=== PATIENT | female | born 1965 | race Caucasian/White ===

== ENCOUNTER 2016-05-31 19:01 | Inpatient (IN) | payer MEDICARE, MEDICAID ==
[~2016-05-31] VITALS: Ht 165.1 cm; Wt 102.7 kg
--- NOTE | ~2016-05-31 | EKG ---
[place], [place] ELECTROCARDIOGRAM REPORT NAME: SUNDAR TMA UNIT #: [id number] ROOM: 424 DOCTOR: FAN STACK MD BIRTHDATE: [birth year] DOS: 05/31/2016 TIME: 19:46.P Sinus rhythm with right axis deviation, biatrial enlargement, possible right ventricular hypertrophy with secondary ST-T wave changes, abnormal electrocardiogram. FAN STACK MD CM:EKGRPT:ELECTROCARDIOGRAM REPORT 1107 [id number] FAN STACK MD
--- NOTE | ~2016-05-31 | CON ---
[place], [place] RE[facility] OF CONS[facility]ATION [id number] UNIT #: [id number] ROOM: 424 DOCTOR: MIYA LAGUNAS MD BIRTHDATE: [birth year] DOS: CHIEF COMPLAINT: "I need my meds adjusted." HISTORY OF PRESENT ILLNESS: This is a 50-year-old white female who is a patient of Dr. Jay. She is admitted to the medical unit due to complaints of shortness of breath, productive cough and respiratory failure. She does have a history of chronic respiratory failure and uses oxygen at home intermittently. She was admitted for this medical issue, but in the course of the examination, it was found that she seemed to be on a polypharmacy mix of antipsychotics, so I was consulted to see if her medications could be simplified. MENTAL STATUS: She is alert and oriented. She does have a hard time with completing her thoughts and has a tendency to be somewhat flighty and disjointed in her thinking. She did report that of her medicine, she feels the duloxetine and the Rexulti are the most beneficial and stated that the nurse practitioner in Dr. Jay's office was hoping to get rid of the Geodon ultimately. She denies auditory or visual hallucinations currently and denies any delusions. Her sleep is disturbed, but it is unclear how much of this is because of her ongoing medical issues. DIAGNOSIS: Schizoaffective disorder. PLAN: I will increase the Rexulti from 2-3 mg at bedtime with a target dose of 4 mg at bedtime. Maintain duloxetine at its current dose, but we can now discontinue the Geodon. At some point, I would see this regimen being simplified further, but this needs to be undertaken as an outpatient. MIYA LAGUNAS MD CM:CONSTR:REPORT OF CONSULTATION 1024 06/02/16 1103 interface
[~2016-05-31 19:01] MED LIST: ADVAIR 250/501 EA INH; ADVAIR 500/501 EA INH; ALBUTEROL0.09 MG/A2 IH; ATIVAN1 MG PO; DELTASONE20 MG PO; DOXYCYCLINE HY100 M3 PO; DOXYCYCLINE100 M3 PO; GEODON80 MG PO; GLUCOPHAGE1000 MG PO; K-DUR 1010 MEQ PO; LASIX40 MG PO; LEVOFLOXACIN500 MG PO; LOXAPINE PO; LOXAPINE50 MG PO; MEDROL DOSEPAK4 MG PO; PREDNISONE10 MG PO; TESSALON PERLE100 MG PO; VENTOLIN H0.09 MG/AC IH; VENTOLIN H0.09 MG/AC INH; VIBRAMYCIN100 MG PO
[2016-05-31 19:16] VITALS: BP 155/89
[2016-05-31 19:54] LABS: HEMATOCRIT 46.6 % (37.0-47.0); MEAN CELL VOLUME 96.3 fl (81.0-99.0); MEAN CORPUSCULAR HGB 28.9 pg (27.0-31.0); MEAN PLATELET VOLUME 10.7 fl (9.6-12.3); NUCLEATED RED BLOOD CELL 0.3 10*3/uL (0.0-0.0); NUCLEATED RED BLOOD CELL 2.9 % (0.0-0.0); PLATELET COUNT AUTOMATED 158 10*3/uL (130-400); RED BLOOD COUNT 4.84 10*6/uL (4.10-5.10); RED CELL DISTRI WIDTH 15.8 % (0-14.5); WHITE BLOOD COUNT 9.9 10*3/uL (4.8-10.8)
[2016-05-31 20:00] VITALS: BP 144/86
[2016-05-31 20:12] LABS: ALBUMIN 2.9 gm/dl (3.1-4.5); CKMB 3.2 ng/ml (0.5-3.6); MAGNESIUM 1.8 mg/dL (1.5-2.1); POTASSIUM 4.7 mmol/L (3.5-5.1); TOTAL PROTEIN 6.7 gm/dL (6.4-8.2); TROPONIN I 0.044 ng/ml (<0.045)
[2016-05-31 20:14] LABS: LYMPHOCYTE # 0.9 10*3/uL (1.3-4.4); NEUTROPHILS 91 % (47-73); TOTAL CELLS COUNTED 100 #CELLS
[2016-05-31 20:15] LABS: PLATELET SUFFICIENCY NORMAL (NORMAL); POLYCHROMASIA SLIGHT; TARGET CELLS FEW
[2016-05-31 20:52] LABS: ABG BASE EXCESS 10.9 mmol/L (-2.0-2.0); ABG CO2 CONTENT 40.7 mmol/L (23-27); ABG HCO3 38.7 mmol/l (22-26); ABG TEMPERATURE 97.7 F (98.0-99.0); ARTERIAL BLOOD GAS PH 7.385 (7.35-7.45)
[2016-05-31 21:32] LABS: BILIRUBIN NEGATIVE (NEGATIVE); BLOOD NEGATIVE (NEGATIVE); CLARITY CLEAR (CLEAR); COLOR YELLOW (YELLOW); GLUCOSE NEGATIVE (NEGATIVE); KETONE NEGATIVE (NEGATIVE); LEUKO ESTERASE TRACE (NEGATIVE); NITRITE NEGATIVE (NEGATIVE); PH 5.5 (5.0-9.0); PROTEIN NEGATIVE (NEGATIVE); SPECIFIC GRAVITY <= 1.005 (1.005-1.030)
[2016-05-31 21:40] LABS: BACTERIA TRACE; EPITHELIAL CELLS 25-30; RBC 0-2 rbc/hpf (0-2); URINE REFLEX COMMENT YES (NO)
[2016-05-31 21:50] LABS: LA>2 REFLEX 2 HR DRAW NOW
[2016-05-31 22:02] LABS: URINE AMPHETAMINES < 1000 (1000ng/ml); URINE BARBITURATES < 200 (200ng/ml); URINE COCAINE < 300 (300ng/ml)
[2016-05-31 22:03] VITALS: BP 130/71
[2016-05-31 22:30] VITALS: BP 144/86
[2016-05-31 23:56] LABS: LA>2 REFLEX 4 HR DRAW NOW
[2016-06-01] VITALS: BP 144/86
[2016-06-01] MEDS ORDERED: BENZTROPINE MESY1 MG PO (00:12)
[2016-06-01] MEDS ORDERED: REXULTI2 MG PO (00:13)
[2016-06-01 00:29] LABS: CKMB 3.1 ng/ml (0.5-3.6)
[2016-06-01 00:32] LABS: TROPONIN I 0.058 ng/ml (<0.045)
[2016-06-01 06:46] LABS: CKMB 3.5 ng/ml (0.5-3.6)
[2016-06-01 06:51] LABS: HEMATOCRIT 42.5 % (37.0-47.0); HEMOGLOBIN 12.6 g/dl (12.0-16.0); MEAN CELL VOLUME 96.4 fl (81.0-99.0); MEAN CORPUSCULAR HGB 28.6 pg (27.0-31.0); MEAN CORPUSCULAR HGB CONC 29.6 g/dl (33.0-37.0); MEAN PLATELET VOLUME 11.1 fl (9.6-12.3); NUCLEATED RED BLOOD CELL 0.2 10*3/uL (0.0-0.0); NUCLEATED RED BLOOD CELL 1.7 % (0.0-0.0); PLATELET COUNT AUTOMATED 141 10*3/uL (130-400); RED BLOOD COUNT 4.41 10*6/uL (4.10-5.10); RED CELL DISTRI WIDTH 15.8 % (0-14.5); WHITE BLOOD COUNT 9.2 10*3/uL (4.8-10.8)
[2016-06-01 06:53] LABS: TROPONIN I 0.056 ng/ml (<0.045)
[2016-06-01 07:10] LABS: BUN 24 mg/dl (7-24); CARBON DIOXIDE 38 mmol/L (21-32); CHLORIDE 96 mmol/L (98-107); CHOLESTEROL 54 mg/dL (<200); EST GLOM FILT AFRICAN AMERICAN > 60 ml/min; GLUCOSE 144 mg/dL (65-99); SODIUM 140 mmol/L (136-145); TRIGLYCERIDES 70 mg/dl (<150); VLDL CHOLESTEROL 14 mg/dL (6-40)
[2016-06-01 07:17] LABS: FREE T4 1.22 ng/dl (0.76-1.46); HDL CHOLESTEROL 17 mg/dl (40-60); INTERNATIONAL NORM RATIO 1.4 (2.0-3.5); LDL CHOLESTEROL 23 mg/dL (9-159); PROTHROMBIN TIME 15.4 SECONDS (9.0-12.4)
[2016-06-01 07:18] LABS: HEMOGLOBIN A1c 8.3 % (4.8-5.6)
[2016-06-01 07:42] LABS: BASOPHIL # 0.1 10*3/uL (0-0.1); BASOPHILS 1 % (0-1); LYMPHOCYTE # 1.1 10*3/uL (1.3-4.4); MONOCYTE # 0.3 10*3/uL (0.1-1.0); NEUTROPHIL # 7.7 10*3/uL (2.3-7.9); NEUTROPHILS 84 % (47-73); PLATELET SUFFICIENCY NORMAL (NORMAL); POLYCHROMASIA SLIGHT; STOMATOCYTE FEW; TOTAL CELLS COUNTED 100 #CELLS
[2016-06-01 08:00] VITALS: BP 139/79
[2016-06-01 08:51] LABS: FOLIC ACID 19.82 ng/mL (>5.38)
[2016-06-01 12:00] VITALS: BP 129/75; BP 139/75
[2016-06-01 12:11] LABS: TROPONIN I 0.046 ng/ml (<0.045)
[2016-06-01 16:00] VITALS: BP 131/71
[2016-06-01 20:00] VITALS: BP 134/79
[2016-06-02] VITALS: BP 118/54
[2016-06-02 07:07] LABS: HEPATITIS C VIRUS ANTIBODY 0.2 s/co (0.0-0.9)
[2016-06-02 07:46] VITALS: BP 164/80
[2016-06-02 12:00] VITALS: BP 135/80
[2016-06-02 16:00] VITALS: BP 141/82
[2016-06-02 20:00] VITALS: BP 131/74
[2016-06-03] VITALS: BP 141/81
[2016-06-03 04:00] VITALS: BP 135/81
[2016-06-03 06:34] LABS: BUN 10 mg/dl (7-24); CARBON DIOXIDE 38 mmol/L (21-32); CHLORIDE 101 mmol/L (98-107); EST GLOM FILT AFRICAN AMERICAN > 60 ml/min; GLUCOSE 144 mg/dL (65-99); POTASSIUM 4.4 mmol/L (3.5-5.1); SODIUM 145 mmol/L (136-145)
[2016-06-03 08:00] VITALS: BP 135/57
[2016-06-03 12:00] VITALS: BP 146/70
[2016-06-03] MEDS ORDERED: PREDNISONE10 MG PO (14:10)
[2016-06-03] MEDS ORDERED: VIBRAMYCIN100 MG PO (14:10)
== END 2016-06-03 14:36 | disposition home or self-care (01) | DRG 871 ==
LOC: ED 19:01 → 4E 21:26 → EDHOLD 21:26 → 4E 21:58
PROVIDERS: Internal Medicine; Physician Assistant
DX: A41.9 Sepsis, unspecified organism (principal); N17.0 Acute kidney failure with tubular necrosis; J96.02 Acute respiratory failure with hypercapnia; J44.1 Chronic obstructive pulmonary disease with (acute) exacerbation; E87.2 Acidosis; E44.0 Moderate protein-calorie malnutrition; F41.9 Anxiety disorder, unspecified; F17.210 Nicotine dependence, cigarettes, uncomplicated; G47.33 Obstructive sleep apnea (adult) (pediatric); E11.65 Type 2 diabetes mellitus with hyperglycemia; D72.810 Lymphocytopenia; R65.20 Severe sepsis without septic shock; R74.0 Nonspecific elevation of levels of transaminase and lactic acid dehydrogenase [LDH]; F25.9 Schizoaffective disorder, unspecified; Z90.49 Acquired absence of other specified parts of digestive tract; Z98.891 History of uterine scar from previous surgery; Z86.711 Personal history of pulmonary embolism; Z83.6 Family history of other diseases of the respiratory system; Z82.49 Family history of ischemic heart disease and other diseases of the circulatory system; Z79.899 Other long term (current) drug therapy; Z68.37 Body mass index [BMI] 37.0-37.9, adult